=== PATIENT | female | born 1985 | race Caucasian/White ===

== ENCOUNTER 2018-08-09 18:43 | Emergency (ER) | payer MEDICAID ==
[~2018-08-09] VITALS: Ht 170.2 cm; Wt 91.5 kg
[2018-08-09 19:06] VITALS: BP 179/99
--- NOTE | 2018-08-09 21:00 | NUR ---
pt. not in lobby x1
--- NOTE | 2018-08-09 21:31 | NUR ---
pt not in lobby x2
--- NOTE | 2018-08-09 21:49 | NUR ---
pt not in lobby x3
== END 2018-08-09 22:13 | disposition left against medical advice (07) ==
LOC: ER 18:44
DX: I10 Essential (primary) hypertension (principal); Z53.21 Procedure and treatment not carried out due to patient leaving prior to being seen by health care provider

== ENCOUNTER 2021-09-05 09:43 | Emergency (ER) | payer MEDICAID ==
[~2021-09-05] VITALS: Ht 170.2 cm; Wt 82.5 kg
[2021-09-05 10:04] VITALS: BP 145/99
[2021-09-05] MEDS ORDERED: ketorolac trometh. 30mg/ml inj. IM ONE (11:35)
[2021-09-05] MEDS ORDERED: MELO7.5T12 PO (12:32)
== END 2021-09-05 12:46 | disposition home or self-care (01) ==
LOC: ER 09:44
DX: S32.10XA Unspecified fracture of sacrum, initial encounter for closed fracture (principal); Z79.899 Other long term (current) drug therapy; W19.XXXA Unspecified fall, initial encounter; Y93.89 Activity, other specified; Y92.89 Other specified places as the place of occurrence of the external cause; Y99.8 Other external cause status
CPT/HCPCS: 72170; 96372; 99283; J1885